=== PATIENT | male | born 1990 | race Caucasian/White ===

== ENCOUNTER 2017-06-28 04:16 | Emergency (ER) | payer OTHER ==
[~2017-06-28] VITALS: Ht 167.6 cm; Wt 82.0 kg
[~2017-06-28 04:16] MED LIST: AMOX500T2 PO; TYLE3 PO
[2017-06-28 04:18] VITALS: BP 147/82; PULSE 75; RESP 16; TEMP 99; O2SAT 100
[2017-06-28] MEDS ORDERED: CYCL10TA PO (04:59)
[2017-06-28] MEDS ORDERED: DICL75TA PO (04:59)
[2017-06-28] MEDS ORDERED: NAPROXEN 500 MG TAB PO ONE (05:00)
[2017-06-28] MEDS ORDERED: CYCLOBENZAPRINE HCL 10 MG TAB PO ONE (05:00)
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
== END 2017-06-28 05:34 | disposition home or self-care (01) ==
LOC: NEPD 04:16
DX: S16.1XXA Strain of muscle, fascia and tendon at neck level, initial encounter (principal); S10.93XA Contusion of unspecified part of neck, initial encounter; Z79.899 Other long term (current) drug therapy; V47.5XXA Car driver injured in collision with fixed or stationary object in traffic accident, initial encounter
CPT/HCPCS: 72040; 99284